=== PATIENT | male | born 1960 | race Caucasian/White ===

== ENCOUNTER 2019-08-19 10:45 | Emergency (ER) | payer OTHER, SELFPAY ==
[2019-08-19 10:55] VITALS: BP 119/70; PULSE 62; RESP 15; BMI 27.6
[2019-08-19 11:00] VITALS: PULSE 57; TEMP 36.5; O2SAT 97
--- NOTE | 2019-08-19 11:46 | PC.NURSE ---
breath sound clear bilaterally,.
[2019-08-19 11:47] VITALS: BP 123/76; BP 123/79; PULSE 54; PULSE 57; RESP 18; O2SAT 98
[2019-08-19 12:00] LABS: Add Manual Diff / Slide Review NO; Basophils Absolute Auto 0 /uL (0-100); Basophils Percent Auto 0.5 % (0-2); Eosinophils Absolute Auto 100 /uL (0-450); Eosinophils Percent Auto 1.8 % (2-4); Hematocrit 46.9 % (41-53); Lymphocytes Absolute Auto 1500 /uL (1100-4500); Lymphocytes Percent Auto 28.1 % (25-40); Mean Corpuscular HGB Conc 34.2 % (30-36); Mean Corpuscular Hemoglobin 31.2 PG (26-34); Mean Corpuscular Volume 91.2 fL (80-100); Monocytes Absolute Auto 400 /uL (0-900); Monocytes Percent Auto 7.8 % (3-14); Neutrophils Absolute Auto 3300 /uL (1500-7000); Neutrophils Percent Auto 61.8 % (50-75); Platelet Count 206 X10^3/uL (150-400); Red Blood Cell Count 5.14 X10^6/uL (4.5-5.9); Red Cell Distribution Width 14.9 % (11.6-14.8); White Blood Cell Count 5.3 X10^3/uL (4.5-11.0)
[2019-08-19 12:01] VITALS: BP 131/85; PULSE 52; O2SAT 97
[2019-08-19 12:02] LABS: PTT Partial Thromboplastin Tim 27 SECONDS (26.4-36.2)
[2019-08-19 12:09] LABS: Alanine Aminotransferase 21 IU/L (<50); Albumin 4.5 g/dL (3.5-5.0); Albumin Globulin Ratio 1.3 (1.0-2.8); Alkaline Phosphatase 93 U/L (38-126); Aspartate Aminotransferase 25 IU/L (17-59); BUN Creatinine Ratio 24.3 (6-22); Bilirubin Total 0.4 mg/dL (0.2-1.3); Blood Urea Nitrogen 17 mg/dL (9-20); Calcium 9.5 mg/dL (8.4-10.2); Carbon Dioxide 28 mmol/L (22-32); Chloride 104 mmol/L (98-107); Estimated Glomerular Filt Rate > 60.0 mL/min (>60); Globulin 3.4 g/dL (1.7-4.1); Glucose 113 mg/dL (80-110); HEMOLYSIS < 15 (0-50); Lipase 22 U/L (23-300); Potassium 4.3 mmol/L (3.4-5.1); Sodium 139 mmol/L (137-145); Total Protein 7.9 g/dL (6.3-8.2)
--- NOTE | 2019-08-19 12:42 | ED.BACK ---
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 History is taken with manager lighting. He states that about 2 weeks ago, he was at work on the 2nd floor holding onto a wet wall for balance when he slipped and fell onto a wooden plank, hitting his right side rib area (his foot actually went through the ceiling). He states that his ribs were sore, especially with getting up and down and any jolting or cough, but had been taking ibuprofen and doing okay. Yesterday however, the rib pain acutely worsened and ibuprofen has not been helping as it was previously. He denies any new chest pain otherwise, denies dyspnea. He denies any abdominal pain, nausea or vomiting. He denies any bowel habit changes or urinary symptoms. He states he has been eating normally. He states that he didn't have any specific new injury. He has not been sick with any fever, upper respiratory symptoms. He denies any other complaints on systems review. He has not taken any other pain medication. Related Data Home Medications Medication Instructions Recorded Confirmed omeprazole 40 mg PO DAILY 08/19/19 08/19/19 Previous Rx's Medication Instructions Recorded hydrocodone-acetaminophen [[place]] 1 tab PO Q4-6H PRN #10 tab 08/19/19 meloxicam 15 mg PO DAILY PRN #14 tab 08/19/19 Allergies Allergy/AdvReac Type Severity Reaction Status Date / Time No Known Drug Allergies Allergy Verified 08/19/19 10:55 Review of Systems <Olivia Ly PA-C - Last Filed: 08/19/19 20:44> Review of Systems ROS Unobtainable: All systems reviewed & are unremarkable except as noted in HPI and below Patient History <Olivia Ly PA-C - Last Filed: 08/19/19 20:44> Medical History (Updated 08/19/19 @ 14:54 by Olivia Ly PA-C) History of gastritis (Chronic) Surgical History (Updated 08/19/19 @ 14:06 by Olivia Ly PA-C) History of surgery on right wrist (Resolved) Social History Smoking Status: Never smoker Smoking Status: Never smoker Exam <Olivia Ly PA-C - Last Filed: 08/19/19 20:44> Narrative Exam Narrative: GENERAL APPEARANCE: Patient resting comfortably, in no distress HEENT: PERRL, EOMI, no scleral icterus, normal oropharynx NECK: Supple, no masses LUNGS: Clear to auscultation bilaterally. CHEST: Tender to palpation over the right inferior posterior lateral and 12th anterior ribs, no tenderness elsewhere HEART: Rate and rhythm regular, normal S1 and S2, no S3 or S4. ABDOMEN: Soft, nontender, nondistended, bowel sounds present x 4 quadrants, no masses palpable, no hepatosplenomegaly. EXTREMITIES: No edema, no calf tenderness DERMATOLOGIC: No jaundice or exanthem. No ecchymoses or abrasions NEUROLOGIC: Alert and oriented with normal speech and coordination Initial Vital Signs Initial Vital Signs: Vital Signs Pulse Rate 62 08/19/19 10:55 Respiratory Rate 15 08/19/19 10:55 Blood Pressure 119/70 08/19/19 10:55 <Anuradha Kinsey MD - Last Filed: 08/23/19 12:19> Initial Vital Signs Initial Vital Signs: Vital Signs Pulse Rate 62 08/19/19 10:55 Respiratory Rate 15 08/19/19 10:55 Blood Pressure 119/70 08/19/19 10:55 Course <Olivia Ly PA-C - Last Filed: 08/19/19 20:44> Course Additional Information: Reviewed findings with patient via manager lighting. He is feeling significantly improved after medications. Advised remain off of work for the next few days until he can follow up with his PCP and determine progress as he regularly lifts 40 lb at work. He is agreeable, and also agreeable with plan to return if any acutely worsening symptoms Orders Ordered: Discontinued Medications Hydrocodone Bitart/Acetaminophen ([place] 5/325) 1 tab PO NOW ONE Stop: 08/19/19 13:12 Last Admin: 08/19/19 13:32 Dose: 1 tab Documented by: SHUN Ketorolac Tromethamine (Toradol) 30 mg IV NOW ONE Stop: 08/19/19 13:12 Last Admin: 08/19/19 13:32 Dose: 30 mg Documented by: SHUN Pantoprazole Sodium (Protonix) 40 mg IV NOW ONE Stop: 08/19/19 13:12 Last Admin: 08/19/19 13:32 Dose: 40 mg Documented by: SHUN Vital Signs Vital signs: Vital Signs - 8 hr 08/19/19 13:30 08/19/19 15:04 Pulse Rate 49 L 54 L Respiratory Rate 18 Blood Pressure [Left Arm] 133/85 135/78 Pulse Oximetry 100 97 <Anuradha Kinsey MD - Last Filed: 08/23/19 12:19> Orders Ordered: Discontinued Medications Hydrocodone Bitart/Acetaminophen ([place] 5/325) 1 tab PO NOW ONE Stop: 08/19/19 13:12 Last Admin: 08/19/19 13:32 Dose: 1 tab Documented by: SHUN Ketorolac Tromethamine (Toradol) 30 mg IV NOW ONE Stop: 08/19/19 13:12 Last Admin: 08/19/19 13:32 Dose: 30 mg Documented by: SHUN Pantoprazole Sodium (Protonix) 40 mg IV NOW ONE Stop: 08/19/19 13:12 Last Admin: 08/19/19 13:32 Dose: 40 mg Documented by: SHUN Vital Signs Vital signs: Vital Signs - 8 hr 08/19/19 13:30 08/19/19 15:04 Pulse Rate 49 L 54 L Respiratory Rate 18 Blood Pressure [Left Arm] 133/85 135/78 Pulse Oximetry 100 97 MDM - Back Pain/Injury <Olivia Ly PA-C - Last Filed: 08/19/19 20:44> Lab Data Attestation: I reviewed the patient's lab results. Result diagrams: 08/19/19 11:30 08/19/19 11:30 Labs: Lab Results 08/19/19 08/19/19 08/19/19 Range/Units 11:30 11:30 11:30 WBC 5.3 (4.5-11.0) X10^3/uL RBC 5.14 (4.5-5.9) X10^6/uL Hgb 16.0 (13.5-17.5) g/dL Hct 46.9 (41-53) % MCV 91.2 (80-100) fL MCH 31.2 (26-34) PG MCHC 34.2 (30-36) % RDW 14.9 H (11.6-14.8) % Plt Count 206 (150-400) X10^3/uL Neut % (Auto) 61.8 (50-75) % Lymph % (Auto) 28.1 (25-40) % Armstrong % (Auto) 7.8 (3-14) % Eos % (Auto) 1.8 L (2-4) % Baso % (Auto) 0.5 (0-2) % Neut # (Auto) 3300 (8367-1886) /uL Lymph # (Auto) 1500 (7058-5510) /uL Armstrong # (Auto) 400 (0-900) /uL Eos # (Auto) 100 (0-450) /uL Baso # (Auto) 0 (0-100) /uL PT 11.0 (10.1-12.7) SECONDS INR 1.0 (0.9-1.3) APTT 27 (26.4-36.2) SECONDS Sodium 139 (137-145) mmol/L Potassium 4.3 (3.4-5.1) mmol/L Chloride 104 (98-107) mmol/L Carbon Dioxide 28 (22-32) mmol/L BUN 17 (9-20) mg/dL Creatinine 0.70 (0.66-1.25) mg/dL Estimated GFR > 60.0 (>60) mL/min BUN/Creatinine Ratio 24.3 H (6-22) Glucose 113 H (80-110) mg/dL Calcium 9.5 (8.4-10.2) mg/dL Total Bilirubin 0.4 (0.2-1.3) mg/dL AST 25 (17-59) IU/L ALT 21 (<50) IU/L Alkaline Phosphatase 93 (38-126) U/L Total Protein 7.9 (6.3-8.2) g/dL Albumin 4.5 (3.5-5.0) g/dL Globulin 3.4 (1.7-4.1) g/dL Albumin/Globulin Ratio 1.3 (1.0-2.8) Lipase 22 L (23-300) U/L Urine Dip Bedside Urine Glucose 100 mg/dl Bedside Urine Bilirubin - Negative Bedside Urine Ketone - Negative Urine Specific [place] 1.030 Bedside Urine Occult Blood - Negative Bedside Urine pH 6.0 Bedside Urine Protein +/- 15 Bedside Urine Urobilinogen - Negative Bedside Urine Nitrite - Negative Bedside Urine Leukocytes - Negative Esterase Imaging Data Chest x-ray: Radiologist's Impression: [address] [address] XRay Report Signed Patient: Eldon DillardR#: [id number] : 9Acct:[id number] Age/Sex: 59 / MDate of Service: 08/19/19 Loc: ED Accession Number: [id number] Procedure: XR ribs RT min 3V w CXR1V Ordering Provider: Olivia Ly P.A-C PROCEDURE: XR RIBS RT MIN 3V W CXR 1V INDICATIONS: R. lower rib pain, fall on roof 2 week ago (worsening) TECHNIQUE: 2 views of the right ribs were acquired, along with a single view chest. COMPARISON: None. FINDINGS: Surgical changes and devices: None. Bones and chest wall: No fractures or dislocations. No suspicious bony lesions. Overlying soft tissues appear unremarkable. Lungs and pleura: No pleural effusions or pneumothorax. Lungs appear clear. Mediastinum: Mediastinal contours appear normal. Heart size is normal. IMPRESSION: No displaced rib fracture. Dictated by: Pascale Jones MD, PhD on 08/19/2019 at 13:58 Approved by: Pascale Jones MD, PhD on 08/19/2019 at 13:59 <Anuradha Kinsey MD - Last Filed: 08/23/19 12:19> Lab Data Labs: Lab Results 08/19/19 08/19/19 08/19/19 Range/Units 11:30 11:30 11:30 WBC 5.3 (4.5-11.0) X10^3/uL RBC 5.14 (4.5-5.9) X10^6/uL Hgb 16.0 (13.5-17.5) g/dL Hct 46.9 (41-53) % MCV 91.2 (80-100) fL MCH 31.2 (26-34) PG MCHC 34.2 (30-36) % RDW 14.9 H (11.6-14.8) % Plt Count 206 (150-400) X10^3/uL Neut % (Auto) 61.8 (50-75) % Lymph % (Auto) 28.1 (25-40) % Armstrong % (Auto) 7.8 (3-14) % Eos % (Auto) 1.8 L (2-4) % Baso % (Auto) 0.5 (0-2) % Neut # (Auto) 3300 (3543-7704) /uL Lymph # (Auto) 1500 (1551-7338) /uL Armstrong # (Auto) 400 (0-900) /uL Eos # (Auto) 100 (0-450) /uL Baso # (Auto) 0 (0-100) /uL PT 11.0 (10.1-12.7) SECONDS INR 1.0 (0.9-1.3) APTT 27 (26.4-36.2) SECONDS Sodium 139 (137-145) mmol/L Potassium 4.3 (3.4-5.1) mmol/L Chloride 104 (98-107) mmol/L Carbon Dioxide 28 (22-32) mmol/L BUN 17 (9-20) mg/dL Creatinine 0.70 (0.66-1.25) mg/dL Estimated GFR > 60.0 (>60) mL/min BUN/Creatinine Ratio 24.3 H (6-22) Glucose 113 H (80-110) mg/dL Calcium 9.5 (8.4-10.2) mg/dL Total Bilirubin 0.4 (0.2-1.3) mg/dL AST 25 (17-59) IU/L ALT 21 (<50) IU/L Alkaline Phosphatase 93 (38-126) U/L Total Protein 7.9 (6.3-8.2) g/dL Albumin 4.5 (3.5-5.0) g/dL Globulin 3.4 (1.7-4.1) g/dL Albumin/Globulin Ratio 1.3 (1.0-2.8) Lipase 22 L (23-300) U/L Urine Dip Bedside Urine Glucose 100 mg/dl Bedside Urine Bilirubin - Negative Bedside Urine Ketone - Negative Urine Specific [place] 1.030 Bedside Urine Occult Blood - Negative Bedside Urine pH 6.0 Bedside Urine Protein +/- 15 Bedside Urine Urobilinogen - Negative Bedside Urine Nitrite - Negative Bedside Urine Leukocytes - Negative Esterase Discharge Plan Departure Patient Disposition: Home Clinical Impression: Contusion of rib on right side Qualifiers: Encounter type: initial encounter Qualified Code(s): S20.211A - Contusion of right front wall of thorax, initial encounter Intercostal muscle strain Qualifiers: Encounter type: initial encounter Qualified Code(s): S29.011A - Strain of muscle and tendon of front wall of thorax, initial encounter Discharge Date/Time: 08/19/19 15:18 Instructions: DI for Rib Contusion Activity Restrictions/Additional Instructions: I think that your pain is due to contusion your lower ribs and straining the muscles in between the ribs. As we talked about, there was no abnormality on your lab work to explain your pain, and there was no acute problem found on your x-ray. Since the medicines that we gave you helped, I have prescribed a similar anti-inflammatory/pain medicine, meloxicam, that you can take once daily. Continue your omeprazole. I have also prescribed a small amount of hydrocodone/acetaminophen for you. As we talked about, that medicine can make you sleepy so you should not drive or work when you take it. It can cause constipation so take a stool softener if needed. Try taking the anti-inflammatory pain reliever regularly and adding the hydrocodone/acetaminophen as needed. Stay off of work for the next few days until you can follow-up with your PCP. As we talked about, you should return to the emergency department if you have any acutely worsening symptoms or new symptoms such as shortness of breath or fever. I have sent your prescription for meloxicam to [facility] in [place] and you will need to take in the prescription for hydrocodone/acetaminophen yourself. Be sure to take your L and I claim number with you to get your medicines. Creo que laureano dolor se debe a la contusi?n de las costillas inferiores y al esfuerzo de los m?sculos entre las costillas. Cuando hablamos, no hubo ninguna anormalidad en laureano trabajo de laboratorio para explicar laureano dolor, y no se encontraron problemas agudos en laureano radiograf?a. Dado que los medicamentos que le dimos ayudaron, le he recetado un medicamento antiinflamatorio / analg?sico similar, meloxicam, que puede irma omar vez al d?a. Contin?a tu omeprazol. Tambi?n le he recetado omar jasmeet?a cantidad de hidrocodona / acetaminof?n. Alexander mencionamos, beto medicamento puede provocarle arpita?o, por lo que no debe conducir ni trabajar cuando lo brittany. Puede causar estre?imiento, as? que tome un ablandador de heces si es necesario. Intente rima el analg?sico antiinflamatorio regularmente y agregue hidrocodona / acetaminofeno seg?n sea necesario. Mant?ngase fuera del trabajo nina los pr?ximos d?as hasta que pueda hacer un seguimiento con laureano PCP. Alexander mencionamos, debe regresar al departamento de emergencias si tiene s?ntomas que empeoran de manera aguda o s?ntomas nuevos jeana falta de aliento o fiebre. Le envi? laureano receta de meloxicam a [facility] en [place] y usted mismo deber? irma la receta de hidrocodona / acetaminofeno. Aseg?rese de llevar laureano n?nette de reclamo L y yo para obtener alli medicamentos. Prescriptions: New meloxicam 15 mg tablet 15 mg PO DAILY PRN (Reason: rib pain) Qty: 14 RF: 0 hydrocodone-acetaminophen [[place]] 5-325 mg tablet 1 tab PO Q4-6H PRN (Reason: acute rib pain) Qty: 10 RF: 0 No Action omeprazole 20 mg capsule,delayed release(DR/EC) 40 mg PO DAILY RF: 0 Referrals: Vel Rodriguez MD [Non-Staff] - Stand Alone Forms: Work Release Note
--- NOTE | 2019-08-19 13:11 | DI.RAD.S_ITS ---
PROCEDURE: XR RIBS RT MIN 3V W CXR 1V INDICATIONS: R. lower rib pain, fall on roof 2 week ago (worsening) TECHNIQUE: 2 views of the right ribs were acquired, along with a single view chest. COMPARISON: None. FINDINGS: Surgical changes and devices: None. Bones and chest wall: No fractures or dislocations. No suspicious bony lesions. Overlying soft tissues appear unremarkable. Lungs and pleura: No pleural effusions or pneumothorax. Lungs appear clear. Mediastinum: Mediastinal contours appear normal. Heart size is normal. IMPRESSION: No displaced rib fracture. Dictated by: Pascale Jones MD, PhD on 08/19/2019 at 13:58 Approved by: Pascale Jones MD, PhD on 08/19/2019 at 13:59
[2019-08-19 13:30] VITALS: BP 133/85; PULSE 49; O2SAT 100
[2019-08-19] MEDS: PANTOPRAZOLE 40 MG VIAL IV (13:32)
[2019-08-19] MEDS: KETOROLAC 60 MG/2 ML VIAL 30 MG IV (13:32)
[2019-08-19] MEDS: HYDROCODONE/ACET 5/325 TABLET 1 TAB PO (13:32)
[2019-08-19 15:04] VITALS: BP 135/78; PULSE 54; RESP 18; O2SAT 97
== END 2019-08-19 15:18 | disposition home or self-care (01) ==
PROVIDERS: Emergency Medicine; Emergency Provider Internal Medicine
DX: S20.211A Contusion of right front wall of thorax, initial encounter (principal); S29.011A Strain of muscle and tendon of front wall of thorax, initial encounter; W01.198A Fall on same level from slipping, tripping and stumbling with subsequent striking against other object, initial encounter; Y99.0 Civilian activity done for income or pay
CPT/HCPCS: 36415; 71101; 80053; 81003; 83690; 85025; 85610; 85730; 96374; 96375; 99284; C9113; J1885